=== PATIENT | male | born 1960 | race Caucasian/White ===

== ENCOUNTER → 2020-06-09 | Outpatient (CLI) | payer OTHER ==
[2020-06-10 08:14] LABS: HBSAG SCREEN Negative (Negative); HEP B CORE AB, TOT Negative (Negative)
[2020-06-11 03:09] LABS: HCV AB <0.1 (0.0-0.9)
[2020-06-13 12:10] LABS: QUANTIFERON MITOGEN VALUE >10.00 IU/mL (.); QUANTIFERON NIL VALUE 0.04 IU/mL (.); QUANTIFERON TB1 AG VALUE 0.08 IU/mL (.); QUANTIFERON TB2 AG VALUE 0.03 IU/mL (.); QUANTIFERON-TB GOLD PLUS Negative (Negative)
== END ==
LOC: LAB 14:01
PROVIDERS: Internal Medicine
DX: M06.09 Rheumatoid arthritis without rheumatoid factor, multiple sites (principal); R76.8 Other specified abnormal immunological findings in serum; M25.50 Pain in unspecified joint; D89.89 Other specified disorders involving the immune mechanism, not elsewhere classified; M19.042 Primary osteoarthritis, left hand; M19.041 Primary osteoarthritis, right hand; M85.842 Other specified disorders of bone density and structure, left hand; M85.841 Other specified disorders of bone density and structure, right hand; Z79.899 Other long term (current) drug therapy
CPT/HCPCS: 36415; 73130; 85652; 86140; 86704; 86803; 86804; 87340

== ENCOUNTER → 2020-07-17 | Outpatient (CLI) | payer OTHER ==
[~2020-07-17] VITALS: Ht 157.5 cm; Wt 65.8 kg
== END ==
LOC: OPSV 07:45
DX: M06.9 Rheumatoid arthritis, unspecified (principal)
CPT/HCPCS: 96365; 96366; 96375; 96413; 96415; J2930; J7030; J9312

== ENCOUNTER → 2020-07-31 | Outpatient (CLI) | payer OTHER ==
[~2020-07-31] VITALS: Ht 172.7 cm; Wt 65.8 kg
== END ==
LOC: OPSV 07:48
DX: M06.9 Rheumatoid arthritis, unspecified (principal)
CPT/HCPCS: 96365; 96366; 96375; 96413; 96415; J2930; J7030; J9312

== ENCOUNTER → 2021-03-06 | Outpatient (CLI) | payer OTHER ==
[~2021-03-06] VITALS: Ht 172.7 cm; Wt 65.8 kg
== END ==
LOC: OPSV 07:53
DX: M06.9 Rheumatoid arthritis, unspecified (principal)
CPT/HCPCS: 96413; 96415; J2930; J7030; J9312

== ENCOUNTER → 2021-03-20 | Outpatient (CLI) | payer OTHER ==
[~2021-03-20] VITALS: Ht 172.7 cm; Wt 65.8 kg
== END ==
LOC: OPSV 06:49
DX: M06.9 Rheumatoid arthritis, unspecified (principal)
CPT/HCPCS: 96375; 96413; 96415; J2930; J7030; J9312

== ENCOUNTER → 2021-05-25 | Outpatient (CLI) | payer OTHER | LOC: KOH-I 15:21 | DX: M19.011 Primary osteoarthritis, right shoulder (principal) | CPT/HCPCS: 73200 ==

== ENCOUNTER → 2021-06-26 | Outpatient (CLI) | payer OTHER ==
[~2021-06-26] MED LIST: CYMBALTA30 MG PO; DICLOFENAC GEL 1% TOP; INDOMETHACIN50 MG PO; IRON325 M1 PO; LEFLUNOMIDE20 MG PO; NEURONTIN600 MG PO; NORVASC10 MG PO; OMEPRAZOLE40 MG PO; PLAQUENIL200 MG PO; VITAMIN D21250 MCG PO
[2021-06-26 11:06] LABS: HEMOGLOBIN 10.2 gm/dl (14.0-17.5); RED BLOOD COUNT 4.97 M/UL (4.20-5.50); WHITE BLOOD COUNT 13.8 K/UL (4.5-11.0)
[2021-06-26 11:46] LABS: BUN/CREATININE RATIO 21 (0-10)
== END ==
LOC: EDSTATUS 09:00 → OPSV2 09:00
PROVIDERS: Orthopaedic Surgery
DX: Z01.818 Encounter for other preprocedural examination (principal)
CPT/HCPCS: 36415; 80048; 85025; 93005

== ENCOUNTER → 2021-07-10 | Day surgery (SDC) | payer OTHER ==
[~2021-07-10] VITALS: Ht 172.7 cm; Wt 64.0 kg
[2021-07-10 07:16] LABS: BUN/CREATININE RATIO 15 (0-10)
== END | disposition home or self-care (01) ==
LOC: OR 06:30 → EDSTATUS 07:30 → OR 07:30
PROVIDERS: Orthopaedic Surgery
DX: M75.111 Incomplete rotator cuff tear or rupture of right shoulder, not specified as traumatic (principal); M12.811 Other specific arthropathies, not elsewhere classified, right shoulder; M25.411 Effusion, right shoulder; M25.711 Osteophyte, right shoulder; M06.9 Rheumatoid arthritis, unspecified; Z98.890 Other specified postprocedural states; Z20.822 Contact with and (suspected) exposure to COVID-19; Z96.653 Presence of artificial knee joint, bilateral
CPT/HCPCS: 36415; 73020; 80048; 86850; 86900; 86901; C1713; C1776; J0171; J0690; J1100; J2405; J2704; J2710; J2795; J3370; J7120

== ENCOUNTER 2021-10-07 09:39 | Emergency (ER) | payer MEDICARE, OTHER | END 2021-10-07 14:10 | disposition home or self-care (01) | LOC: ER1 09:39 | DX: S43.014A Anterior dislocation of right humerus, initial encounter (principal); F17.210 Nicotine dependence, cigarettes, uncomplicated; X58.XXXA Exposure to other specified factors, initial encounter | CPT/HCPCS: 23650; 73030; 94760; 96374; 96375; 99283; J2270; J2405; J2704 ==

== ENCOUNTER 2021-11-26 12:42 | Inpatient (IN) | payer OTHER ==
[~2021-11-26] VITALS: Ht 172.7 cm; Wt 58.5 kg
[~2021-11-26 12:42] MED LIST changes: +ARTHRITIS PAIN150 GM TOP; -DICLOFENAC GEL 1% TOP; +FERROUS SULFAT325 MG PO; -IRON325 M1 PO
[2021-11-26 14:50] LABS: HEMOGLOBIN 10.1 gm/dl (14.0-17.5); RED BLOOD COUNT 4.8 M/UL (4.20-5.50); WHITE BLOOD COUNT 8.1 K/UL (4.5-11.0)
[2021-11-26 15:23] LABS: BUN/CREATININE RATIO 19 (0-10)
[2021-11-27 02:23] LABS: HEMOGLOBIN 9.3 gm/dl (14.0-17.5); RED BLOOD COUNT 4.39 M/UL (4.20-5.50)
[2021-11-27 02:35] LABS: WHITE BLOOD COUNT 15.5 K/UL (4.5-11.0)
[2021-11-27 02:46] LABS: BUN/CREATININE RATIO 23 (0-10)
[2021-11-28 01:56] LABS: HEMOGLOBIN 8.8 gm/dl (14.0-17.5); RED BLOOD COUNT 4.17 M/UL (4.20-5.50)
[2021-11-28 01:59] LABS: WHITE BLOOD COUNT 9.4 K/UL (4.5-11.0)
[2021-11-28 02:11] LABS: BUN/CREATININE RATIO 15 (0-10)
[2021-11-28 08:12] LABS: CEA 2.8 ng/mL (0.0-4.7)
[2021-11-28] MEDS ORDERED: K-TAB ER10 MEQ PO (15:37)
[2021-11-28] MEDS ORDERED: LASIX20 MG PO (15:37)
== END 2021-11-28 16:24 | disposition home or self-care (01) | DRG 291 ==
LOC: ER1 12:42 → M/S 17:53 → CDU 17:53 → M/S 20:00
PROVIDERS: Internal Medicine; Physician Assistant; Physician Assistant Medical; ADMIT Internal Medicine
PROC: B24BZZ4 Ultrasonography of Heart with Aorta, Transesophageal (ICD-10-PCS; principal; 2021-11-27)
DX: I11.0 Hypertensive heart disease with heart failure (principal); E43 Unspecified severe protein-calorie malnutrition; Z20.822 Contact with and (suspected) exposure to COVID-19; I50.33 Acute on chronic diastolic (congestive) heart failure; R18.8 Other ascites; M06.9 Rheumatoid arthritis, unspecified; D50.9 Iron deficiency anemia, unspecified; R19.7 Diarrhea, unspecified; M10.9 Gout, unspecified; M79.7 Fibromyalgia; M32.9 Systemic lupus erythematosus, unspecified; I08.2 Rheumatic disorders of both aortic and tricuspid valves; M51.36 Other intervertebral disc degeneration, lumbar region; K21.9 Gastro-esophageal reflux disease without esophagitis; F17.210 Nicotine dependence, cigarettes, uncomplicated; E86.0 Dehydration; Z96.653 Presence of artificial knee joint, bilateral; Z96.611 Presence of right artificial shoulder joint
CPT/HCPCS: ECHO; 36415; 71045; 71260; 80048; 80053; 81001; 82105; 82378; 82728; 83540; 83550; 83605; 83690; 83735; 83880; 84100; 85025; 86140; 86301; 93306; 96361; 96374; 99285; C9113; J2405; Q9967

== ENCOUNTER → 2021-12-18 | Outpatient (CLI) | payer OTHER ==
[~2021-12-18] MED LIST changes: +K-TAB ER10 MEQ PO; +LASIX20 MG PO
== END ==
LOC: EXRD 10:36
DX: J90 Pleural effusion, not elsewhere classified (principal)
CPT/HCPCS: 71046

== ENCOUNTER 2022-01-08 10:01 | Emergency (ER) | payer OTHER ==
[2022-01-08 11:04] LABS: HEMOGLOBIN 11.3 gm/dl (14.0-17.5); RED BLOOD COUNT 5.05 M/UL (4.20-5.50); WHITE BLOOD COUNT 12.2 K/UL (4.5-11.0)
[2022-01-08 11:24] LABS: BUN/CREATININE RATIO 45 (0-10)
== END 2022-01-08 13:40 | disposition home or self-care (01) ==
LOC: ER1 10:01
PROVIDERS: Physician Assistant
DX: M79.89 Other specified soft tissue disorders (principal); I11.0 Hypertensive heart disease with heart failure; I50.9 Heart failure, unspecified; K21.9 Gastro-esophageal reflux disease without esophagitis; J44.9 Chronic obstructive pulmonary disease, unspecified; Z87.891 Personal history of nicotine dependence
CPT/HCPCS: 80053; 83880; 85025; 93925; 93970; 99284